=== PATIENT | female | born 1990 | race Two or more races ===

== ENCOUNTER 2022-09-20 06:23 | Emergency (ER) | payer OTHER ==
[~2022-09-20] VITALS: Ht 157.5 cm; Wt 79.4 kg
[2022-09-20] MEDS ORDERED: SYNTHROID50 MCG (06:38)
== END 2022-09-20 08:40 | disposition home or self-care (01) ==
LOC: ER 06:23
DX: J02.9 Acute pharyngitis, unspecified (principal)